=== PATIENT | male | born 1985 | race Caucasian/White ===

== ENCOUNTER 2023-07-08 08:33 | Emergency (ER) | payer BC, SELFPAY ==
[2023-07-08 08:35] VITALS: BP 156/92
--- NOTE | 2023-07-08 09:08 | ED.GENMED ---
History of Present Illness
General
Chief Complaint: Eye Problems
Source: patient
Exam Limitations: none
Time Seen by Provider: 07/08/23 08:56
Travel History
Have you had any contact with someone who has COVID-19?: No
Do you have any symptoms of coronavirus? Fever > 100 degrees, chills, cough, shortness of breath, sore throat, loss of taste or smell, muscle aches, or headache?: No
History of Present Illness
History of Present Illness:
38-year-old male presenting with bilateral eye redness starting on 07/03. Patient states he went to urgent care on 07/05, was diagnosed with conjunctivitis, discharged with Cipro drops. Patient states that he took drops as prescribed with mild
improvement but ran out of drops. Patient reports nasal congestion and rhinorrhea. Patient denies fever, chills, cough, or sore throat. Patient reports bilateral blurry vision. Patient states that symptoms started in his right eye and then
spread to his left eye. Patient denies any eye pain or foreign body sensation. Patient denies use of contacts or glasses.
Past History
Past History
ED Past Medical History: None
Social History
Tobacco: Non-smoker
Alcohol: Occasional
Drug: None
Phy Exam
Physical Exam
Physical Exam:
Head: NCAT
Eyes: bilateral conjunctiva injected with edema. PERRLA. EOMI. No periorbital swelling or erythema. No tearing. no discharge. No foreign bodies visualized
Throat: moist mucus membranes. posterior oropharynx clear with no exudates or erythema
Neck: supple
Heart: regular rate and rhythm
Lungs: clear to auscultation bilaterally. No wheezing, rhonchi, or rales. Speaking full unlabored sentences, no respiratory distress.
Neuro: Alert and oriented x3. no focal deficits
Course
Vital Signs
Initial and Last Documented VS:
Initial Vital Signs
Temp Pulse Resp BP Pulse Ox
98.4 F 84 16 156/92 100
03/25/24 08:35 07/08/23 08:35 07/08/23 08:35 07/08/23 08:35 07/08/23 08:35
Last Documented Vital Signs
Temp Pulse Resp BP Pulse Ox
98.4 F 84 16 156/92 100
07/08/23 08:35 07/08/23 08:35 07/08/23 08:35 07/08/23 08:35 07/08/23 08:35
*Critical Care Note
Total Time (30-74mins, 75-104mins- exclusive of procedures): Not Applicable
Update Note
Update Note:
Patient presents to the Emergency Department with bilateral eye redness
Number and Complexity of Problems Addressed at the Encounter
� Chronic conditions affecting care:
� Acute Exacerbation and/or Progression of Chronic Illness:
� Differential Diagnosis includes: not limited to viral infection, conjunctivitis, bacterial conjunctivitis, foreign body, glaucoma, etc
Amount and/or Complexity of Data to be Reviewed and Analyzed
� I performed an independent evaluation of and my interpretation is:
EKG:
CT:
Xrays:
Laboratory Studies:
Other:
� Review of other/old records reveals:
� Clinical information was obtained by an independent historian:
� Prescriptions/Medications Considered but not given:
� Further testing considered but not performed:
Risk of Complications and/or Morbidity or Mortality of Patient Management
� Social determinants of health affecting care:
� Discussion with other providers (PCP, Hospitalists, Consultants, etc):
� Escalation of care including admission/observation vs risk of discharge considered: Well-appearing 38-year-old male presenting with bilateral eye redness. Conjunctiva injected with edema. PERRLA, EOMI. Low suspicion for glaucoma given pupils
equal round reactive, no tearing/discharge, no pain. No foreign bodies visualized. Patient was started on Cipro drops for 2 days at urgent care. Due to persistent symptoms, will prescribe Cipro drops for 5 days additionally. Higher suspicion for
viral infection, advised to take Flonase and decongestions as needed for symptoms. Advised to follow-up with ophthalmology. Patient expressed verbal understanding.
ED Attending Note
-
Portions of this chart may have been created with voice recognition software.� Occasional wrong word or��sound alike� substitutions may have occurred due to the inherent limitations of voice recognition software.
Discharge Plan
Departure
Patient Disposition: Home (Routine Discharge)
Date of Disposition: 07/08/23
Time of Disposition: 09:32
Patient with high blood pressure during this ER visit?: Yes
Discharge Problem:
Conjunctivitis
Instructions: Conjunctivitis (Pinkeye) (DC), BLOOD PRESSURE
Referrals:
Queenie Beltran MD [Active] - Follow up in 2-3 days
Activity Restrictions/Additional Instructions:
Follow up with ophthalmology in 1-2 days
Take 2 drops in each eye 4 times daily for 5 days
Take flonase and decongestants as needed for symptoms
Return to the emergency department for fever or new/worsening symptoms
Interventions
Interventions:
*Risk Screen - Suicide Last Done: 07/08/23 09:07
*General Assessment Last Done: 07/08/23 09:07
*Neglect/Abuse Screening Last Done: 07/08/23 09:07
ED- Fall Risk Assessment Last Done: 07/08/23 10:07
*ED COVID-19 Vaccine History Last Done: 07/08/23 08:35
*Nursing Disposition Last Done: 07/08/23 10:07
Discharge Date and Time
Discharge Date/Time: 07/08/23 10:07
== END 2023-07-08 10:07 | disposition home or self-care (01) ==
LOC: EMR 08:33
PROVIDERS: EMERGENCY PHYSICIAN Emergency Medicine
DX: H10.9 Unspecified conjunctivitis (principal); R03.0 Elevated blood-pressure reading, without diagnosis of hypertension
CPT/HCPCS: 99282